=== PATIENT | female | born 1955 | race Caucasian/White ===

== ENCOUNTER 2021-08-26 16:09 | Emergency (ER) | payer OTHER ==
[2021-08-26 16:34] VITALS: BP 130/75; PULSE 50; TEMP 98.2; BMI 24.0
[2021-08-26] MEDS ORDERED: IBUPROFEN 600 MG TABLET (FP) PO ONE ×2 (18:36→18:41)
== END 2021-08-26 18:42 | disposition home or self-care (01) ==
LOC: JERFT 16:09
DX: M25.572 Pain in left ankle and joints of left foot (principal)
CPT/HCPCS: 73590-TC-LT-FY; 73610-TC-LT-FY; 73630-TC-LT; 99284-25